=== PATIENT | male | born 1985 | race American Indian/Alaskan Native ===

== ENCOUNTER 2017-04-12 08:51 | Emergency (ER) | payer OTHER ==
[2017-04-12 09:37] LABS: Basophils % (Auto) 0.7 % (0.0-1.8); Eosinophils % (Auto) 2.3 % (0.0-4.3); Hematocrit 40.9 % (35.5-45.6); Mean Corpuscular HGB Conc 34 % (32-34); Mean Corpuscular Hemoglobin 30 pg (28-32); Mean Corpuscular Volume 89 fl (84-94); Platelet Count 278 K/mm3 (140-440); Red Blood Count 4.59 M/mm3 (3.65-5.03); Red Cell Distribution Width 12.9 % (13.2-15.2); White Blood Count 9.2 K/mm3 (4.5-11.0)
[2017-04-12 09:54] LABS: Alanine Aminotransferase 58 units/L (7-56); Albumin 3.8 g/dL (3.9-5); Albumin/Globulin Ratio 1.2 %; Alkaline Phosphatase 73 units/L (35-129); Anion Gap 19 mmol/L; BUN/Creatinine Ratio 11.11; Blood Urea Nitrogen 10 mg/dL (9-20); Calcium 8.3 mg/dL (8.4-10.2); Carbon Dioxide 24 mmol/L (22-30); Chloride 102.7 mmol/L (98-107); Glucose 115 mg/dL (75-100); Lipase 20 units/L (13-60); Potassium 3.5 mmol/L (3.6-5.0); Sodium 142 mmol/L (137-145); Total Protein 6.9 g/dL (6.3-8.2)
[2017-04-12] MEDS ORDERED: MORPHINE IV ONE (10:25)
--- NOTE | 2017-04-12 10:29 | Emergency Department Report ---
HPI - General Chief Complaint: Abdominal Pain Time Seen by Provider: 04/12/17 10:10 - HPI HPI: This is a 32-year-old Afro[place] male presents to the emergency department by EMS with complaint of right sided flank and back pain that started this morning. Prior to this, the patient's been having some intermittent nausea with vomiting. He denies any fever, dysuria, diarrhea or constipation. He did not take anything for symptoms prior to presentation. He presents with very elevated blood pressure and says that he does have a previous history of hypertension and at one point was on lisinopril but has not taken it for quite some time. For some reason he received aspirin and sublingual nitroglycerin in route by EMS but the patient denies any chest pain. He does not have a primary care physician. He denies any recent travel or sick contacts at home. There are no known aggravating or alleviating factors. His pain is currently 8 out of 10 in intensity. ED Past Medical Hx - Past Medical History Previous Medical History?: Yes Hx Hypertension: Yes - Surgical History Past Surgical History?: No - Social History Smoking Status: Current Every Day Smoker Substance Use Type: Alcohol, Marijuana - Medications Home Medications: Home Medications Medication Instructions Recorded Confirmed Last Taken Type HYDROcodone/APAP 5-325 [Mertens 1 each PO Q6HR PRN #10 tablet 04/12/17 Unknown Rx 5/325] amLODIPine [Norvasc] 5 mg PO DAILY #30 tab 04/12/17 Unknown Rx ED Review of Systems ROS: Stated complaint: HBP/RT SIDE PAIN Other details as noted in HPI Comment: All other systems reviewed and negative Constitutional: denies: chills, fever Eyes: denies: eye pain, eye discharge, vision change ENT: denies: ear pain, throat pain Respiratory: denies: cough, shortness of breath, wheezing Cardiovascular: denies: chest pain, palpitations Gastrointestinal: abdominal pain (right flank), nausea, vomiting Genitourinary: hematuria. denies: urgency, dysuria Musculoskeletal: back pain. denies: arthralgia Skin: denies: rash, lesions Neurological: denies: headache, weakness, paresthesias Physical Exam - Physical Exam Vital Signs: Vital Signs 04/12/17 09:00 Temperature 98.0 F Pulse Rate 67 Blood Pressure 187/117 O2 Sat by Pulse 98 Oximetry Physical Exam: GENERAL: The patient is well-developed well-nourished. HEENT: Normocephalic. Atraumatic. Extraocular motions are intact. Patient has moist mucous membranes. Pupils equal reactive to light bilaterally. NECK: Supple. Trachea is midline. CHEST/LUNGS: Clear to auscultation. There is no respiratory distress noted. HEART/CARDIOVASCULAR: Regular. There is no tachycardia. There is no gallop rub or murmur. ABDOMEN: Abdomen is soft. There is some mild reproducible tenderness to the right middle abdomen and flank. No guarding or rebound tenderness. Patient has normal bowel sounds. There is no abdominal distention. Obese habitus. SKIN: Skin is warm and dry. NEURO: The patient is awake, alert, and oriented. The patient is cooperative. The patient has no focal neurologic deficits. The patient has normal speech. MUSCULOSKELETAL: There is no tenderness or deformity. There is no limitation range of motion. There is no evidence of acute injury. ED Course Vital Signs 04/12/17 09:00 Temperature 98.0 F Pulse Rate 67 Blood Pressure 187/117 O2 Sat by Pulse 98 Oximetry ED Medical Decision Making - Lab Data Result diagrams: 04/12/17 09:21 04/12/17 09:21 - Radiology Data Radiology results: report reviewed, image reviewed interpreted by me: Abdominal x-ray does not show any acute process. Nonobstructive nonspecific bowel gas. CT of the abdomen and pelvis with IV contrast does not show any acute process. - Medical Decision Making 32-year-old male presents with acute right flank pain. He has no complaints of chest pain or shortness of breath so I'm unsure as to why the patient received aspirin and nitroglycerin in route. He has some hypertension but on top of being noncompliant with medication he is also a smoker who drinks caffeinated beverages. He was given some pain control and his blood pressure came down to a much more reasonable level. Labs are unremarkable and did not show any etiology of his symptoms. CT of the abdomen and pelvis was a normal examination without any acute process seen. Upon reevaluation the patient is feeling improved. Vital signs stable including being afebrile. He'll be discharged home with referrals for primary care clinics. He was started on Norvasc for his blood pressure and we discussed dietary changes and smoking cessation. He will return to the ER with any worsening of symptoms or any acute distress. - Differential Diagnosis nephrolithiasis, hydronephrosis, appendicitis, colitis Critical Care Time: No Critical care attestation.: If time is entered above; I have spent that time in minutes in the direct care of this critically ill patient, excluding procedure time. ED Disposition Clinical Impression: Flank pain Hypertension Qualifiers: Hypertension type: essential hypertension Qualified Code(s): I10 - Essential ( primary) hypertension Disposition: TO HOME OR SELFCARE Is pt being admited?: No Condition: Stable Instructions: Hypertension (ED), Flank Pain (ED) Additional Instructions: Please follow-up with a primary care physician in the next few days. Return to the emergency department with any worsening of your symptoms or any acute distress. You've been prescribed a medication that is sedating. Therefore this medication cannot be mixed with alcohol, or taken prior to driving, working, or being responsible for children. Please try and quit smoking. Stay away from foods that are high in salt and caffeinated products to help with your blood pressure. Keep a blood pressure log. I have started you on a blood pressure medication called Norvasc/ amlodipine that is to be taken once daily. Prescriptions: amLODIPine [Norvasc] 5 mg PO DAILY #30 tab HYDROcodone/APAP 5-325 [Mertens 5/325] 1 each PO Q6HR PRN #10 tablet PRN Reason: Pain Referrals: PRIMARY CARE, [Primary Care Provider] - 3-5 Days [facility] [Outside] - 3-5 Days [facility] [Outside] - 3-5 Days [facility] [Outside] - 3-5 Days [facility] [Outside] - 3-5 Days Time of Disposition: 12:33
--- NOTE | 2017-04-12 11:57 | Cat Scan Report ---
CT SCAN OF THE ABDOMEN AND PELVIS WITH CONTRAST: HISTORY: Abdominal pain. TECHNIQUE: Helical CT in 1.25mm intervals following IV contrast. Sagittal and coronal reconstructions. FINDINGS: The liver is normal in size and is without focal defect. No gallstones or biliary dilatation are noted. The spleen and pancreas demonstrate a normal size and attenuation with no evidence of abnormal mass. The kidneys are normal in size and position with no evidence of hydronephrosis or mass. The adrenal glands are normal. There is no intestinal obstruction or ascites. Normal appendix. The abdominal aorta is normal. No abnormalities are identified within the retroperitoneum or mesentery. There is no evidence of peritoneal air or fluid. There is no evidence of any abnormal masses or fluid collections within the pelvis. No adenopathy is identified. The bladder is normal. IMPRESSION: Unremarkable CT scan of the abdomen and pelvis with contrast.
[2017-04-12 12:21] LABS: Bilirubin,Urine NEG (Negative); Blood,Urine NEG (Negative); Ketones,Urine NEG (Negative); Leukocyte Esterase,Urine NEG (Negative); Mucus,Urine FEW /HPF; Nitrite,Urine NEG (Negative); Protein,Urine <15 mg/dL mg/dL (Negative); Urobilinogen,Urine < 2.0 mg/dL (<2.0)
[2017-04-12 13:07] VITALS: BP 158/88
--- NOTE | 2017-04-14 15:31 | XRay Report ---
ABDOMEN TWO VIEWS: Abdominal pain. There is no evidence of free air beneath the diaphragms. The gas pattern within the abdomen is unremarkable. There is no evidence of bowel dilatation, significant air-fluid levels, or masses. The psoas margins are adequately visualized. IMPRESSION: Normal abdomen.
== END 2017-04-12 13:14 | disposition home or self-care (01) ==
LOC: ED 08:51
DX: R10.9 Unspecified abdominal pain (principal); I10 Essential (primary) hypertension; F17.200 Nicotine dependence, unspecified, uncomplicated; F12.10 Cannabis abuse, uncomplicated
CPT/HCPCS: 36415; 74020; 74177; 80053; 81001; 83690; 85025; 96374; 99285; J2270; Q9967